=== PATIENT | male | born 1970 | race African-American/Black ===

== ENCOUNTER 2019-05-20 11:37 | Outpatient (CLI) | payer MEDICAID, SELFPAY ==
--- NOTE | 2019-05-20 11:47 | XR_ITS ---
WS: [id number] LUMBAR SPINE TECHNIQUE: 5 views of the lumbar spine CLINICAL INFORMATION: BACK PAIN LUMBAR COMPARISON: None. FINDINGS: Five [id number] lumbar vertebral bodies. Disc space heights are well preserved. No compression f ractures. No visualized pars defects. No spondylolisthesis. Visualized sacroiliac joints are normal. Normal visualized soft tissues. Partially visualized bowel gas pattern is normal. XR/XR lumbar spine min 4V [id number] IMPRESSION: Normal lumbar spine.
--- NOTE | 2019-05-20 11:47 | XR_ITS ---
WS: [id number] PROCEDURE: XR chest 2V* [id number] CLINICAL INFORMATION: COUGH, ASTHMA COMPARISON: 019 FINDINGS: Heart: Normal cardiac silhouette. Lungs: Lungs are clear. No consolidation or pleural fluid. Bones: Normal visualized bony structures. XR/XR chest 2V* [id number] IMPRESSION: Normal chest
== END 2019-05-20 11:38 | disposition home or self-care (01) ==
PROVIDERS: Family Provider Nurse Practitioner Family; PCP Nurse Practitioner Family; Visit Provider Nurse Practitioner Family
DX: J45.909 Unspecified asthma, uncomplicated (principal); R05 Cough; M54.5 Low back pain
CPT/HCPCS: 71046; 72114

== ENCOUNTER 2019-05-26 00:37 | Emergency (ER) | payer MEDICAID, SELFPAY ==
--- NOTE | 2019-05-26 00:42 | XRR_ITS ---
PROCEDURE INFORMATION: Exam: XR Chest, 1 View Exam date and time: 05/26/2019 1:32 AM Age: 49 years old Clinical indication: Shortness of breath; Additional info: SOB, asthma TECHNIQUE: Imaging protocol: XR of the chest Views: Frontal portable upright view of the chest. COMPARISON: CR XR chest 2V* 03000 05/20/2019 12:00 PM FINDINGS: Lungs: The lungs are clear bilaterally. The pulmonary vasculature is normal. Pleural space: No pleural effusion. No pneumothorax. Heart/Mediastinum: The heart is normal in size and contour. Mediastinum: Stable. Bones/joints: Stable. XR/XR chest 1V portable [id number] IMPRESSION: No acute cardiopulmonary abnormality identified.
--- NOTE | 2019-05-26 00:42 | ECG_ITS ---
Measurements Intervals [place] Rate: 91 P: 85 AR: 143 QRS: 89 QRSD: 76 T: 60 QT: 322 QTc: 398 SINUS RHYTHM POSSIBLE LEFT ATRIAL ENLARGEMENT [-0.1mV P WAVE IN V1/V2] No previous ECG available for comparison Electronically Signed On 05-26-2019 9:04:53 CDT by Frandy Smith M.D. [email or web address]
--- NOTE | 2019-05-26 00:48 | ED_ITS ---
Entered by Rebekah Man, acting as scribe for HPI - Asthma General: Chief Complaint: Shortness of Breath/Dyspnea Stated Complaint: SOB Time Seen by Provider: 05/26/19 00:38 Source: patient Mode of arrival: wheelchair Limitations: no limitations History of Present Illness: HPI Narrative: 49 yo m came to the er pov with family for shortness of breath. 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 He states he has had a slight cough along with difficulty breathing. He has been using his inhaler at home with minimal relief. He denies any fevers. He denies any chest pain. 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) Severity: mild Context: none known Associated symptoms: Reports no associated symptoms; Deny chest pain or fever(s) Treatments Prior to Arrival: inhaled steroid Review of Systems General: Reports: other (negative unless marked) Const: Denies: fever, chills, body aches or change in appetite Eyes: Denies: blurry vision or eye discomfort ENMT: Denies: throat pain or dental pain Card: Denies: chest pain Resp: Reports: shortness of breath GI: Denies: abdominal pain, nausea, vomiting or diarrhea : Denies: painful urination Musc: Denies: neck pain or back pain Skin/Breast: Denies: rash Neuro: Denies: headache Psych: Denies: depression Rojas/Lymph: Denies: easy bruising All/Imm: Denies: hives Physical Exam Const: COMMON NORMALS: oriented x3 and healthy appearing GENERAL APPEARANCE: in distress (mild resp distress) HENMT: COMMON NORMALS: normocephalic and head/scalp atraumatic HEAD & SCALP: normocephalic and atraumatic Eye: COMMON NORMALS: PERRL and EOMs intact bilaterally PUPIL: Yes PERRL Neck/C-Spine: COMMON NORMALS: full ROM and supple Chest: COMMONS NORMALS: inspection of chest normal and palpation of chest normal Resp: EFFORT & INSPECTION: Yes tachypneic and Yes respiratory distress AUSCULTATION: wheezes Cardio: COMMON NORMALS: regular rate, regular rhythm and no murmurs RATE: regular rate RHYTHM: regular rhythm GI: COMMON NORMALS: normal to inspection, nondistended, normoactive bowel sounds, soft to palpation, non-tender and no masses PALPATION: Yes soft Extremity: COMMON NORMALS: normal to inspection and full ROM Neuro: COMMON NORMALS: oriented x3, moves all extremities and no focal motor deficits Psych: COMMON NORMALS: mental status grossly normal, thought process normal and cooperative THOUGHT PROCESS: normal thought process Skin: COMMON NORMALS: no rashes or lesions noted and no wounds GENERAL SKIN EXAM: no rashes or lesions noted Course Vital Signs: Vital signs: Vital Signs Pulse Rate 106 H 05/26/19 03:16 Respiratory Rate 18 05/26/19 03:16 Blood Pressure 119/66 05/26/19 03:16 Pulse Oximetry 95 05/26/19 03:16 MDM - Asthma MDM Narrative: Medical decision making narrative: Patient presents here with shortness of breath is likely an asthma exacerbation. He feels much improved here after breathing treatments and is in no distress here. Patient's x-ray shows no pneumonia. He has no signs of pulmonary embolism or cardiac cause. Will start patient on steroids along with antibiotics. Patient is to follow-up with primary care doctor in 3 to 5 days and return to the ER if worsening. Lab Data: Labs: Lab Results 05/26/19 05/26/19 05/26/19 Range/Units 01:11 01:11 01:15 WBC 13.7 H (4.0-10.0) 10^3/ uL RBC 5.15 (4.1-5.3) 10^6/u L Hgb 14.4 (11.7-16.6) g/dL Hct 45.9 (42.0-52.0) % MCV 89.1 (80-94) fL MCH 28.0 (28.0-34.0) pg MCHC 31.4 (30.0-36.0) g/dL RDW 14.1 (12.1-15.1) % Plt Count 286 (130-400) 10^3/c mm MPV 11.4 H (7.4-10.4) fL Neut % (Auto) 82.3 % Lymph % (Auto) 8.4 % [place] % (Auto) 5.8 % Eos % (Auto) 2.6 % Baso % (Auto) 0.5 % Neut # (Auto) 11.3 H (1.8-7.7) 10^3/u L Lymph # (Auto) 1.1 (0.8-4.8) 10^3/u L [place] # (Auto) 0.8 (0.2-0.9) 10^3/u L Eos # (Auto) 0.4 (0.0-0.8) 10^3/u L Baso # (Auto) 0.1 (0.0-0.1) 10^3/u L Nucleated RBC % (a uto) 0 % Nucleated RBCs # 0.0 /100WBC Specimen Type Arterial Sample Site Radial, left ABG pH 7.36 (7.35-7.45) ABG pCO2 46.4 H (35-45) mmHg ABG pO2 41.0 L (80.0-100.0) mmH g ABG HCO3 26.0 (22-26) mmol/L ABG Base Excess -0.1 (-2.0-2.0) mmol/ L Marcelo Test Pos Hematocrit 43.9 (42-52) % Hgb O2 Saturation 81.3 L (95-100) % Carboxyhemoglobin 0.9 (0.4-20.1) %THgb Methemoglobin 0.4 (0.4-1.5) % Total Hemoglobin 14.3 (14-18) g/dL O2 Delivery Device None FiO2 21.0 % Wood Milling Machine Hand ID [id number] Sodium 136 (136-145) mmol/L Potassium 5.1 (3.5-5.1) mmol/L Chloride 99 (98-107) mmol/L Carbon Dioxide 26 (22-29) mmol/L Anion Gap 16.1 (5-19) BUN 9 (6-20) mg/dL Creatinine 0.9 (0.7-1.2) mg/dL GFR Calculation 109.0 (90-130) mL/min Glucose 113 (65-115) mg/dL Calculated Osmolal ity 279 L (285-295) mOsm/k g Calcium 9.2 (8.5-10.5) mg/dL Influenza Type A A g (Negative) POC Influenza B Ag (Negative) 05/26/19 Range/Units 02:15 WBC (4.0-10.0) 10^3/ uL RBC (4.1-5.3) 10^6/u L Hgb (11.7-16.6) g/dL Hct (42.0-52.0) % MCV (80-94) fL MCH (28.0-34.0) pg MCHC (30.0-36.0) g/dL RDW (12.1-15.1) % Plt Count (130-400) 10^3/c mm MPV (7.4-10.4) fL Neut % (Auto) % Lymph % (Auto) % [place] % (Auto) % Eos % (Auto) % Baso % (Auto) % Neut # (Auto) (1.8-7.7) 10^3/u L Lymph # (Auto) (0.8-4.8) 10^3/u L [place] # (Auto) (0.2-0.9) 10^3/u L Eos # (Auto) (0.0-0.8) 10^3/u L Baso # (Auto) (0.0-0.1) 10^3/u L Nucleated RBC % (a uto) % Nucleated RBCs # /100WBC Specimen Type Sample Site ABG pH (7.35-7.45) ABG pCO2 (35-45) mmHg ABG pO2 (80.0-100.0) mmH g ABG HCO3 (22-26) mmol/L ABG Base Excess (-2.0-2.0) mmol/ L Marcelo Test Hematocrit (42-52) % Hgb O2 Saturation (95-100) % Carboxyhemoglobin (0.4-20.1) %THgb Methemoglobin (0.4-1.5) % Total Hemoglobin (14-18) g/dL O2 Delivery Device FiO2 % Wood Milling Machine Hand ID Sodium (136-145) mmol/L Potassium (3.5-5.1) mmol/L Chloride (98-107) mmol/L Carbon Dioxide (22-29) mmol/L Anion Gap (5-19) BUN (6-20) mg/dL Creatinine (0.7-1.2) mg/dL GFR Calculation (90-130) mL/min Glucose (65-115) mg/dL Calculated Osmolal ity (285-295) mOsm/k g Calcium (8.5-10.5) mg/dL Influenza Type A A g Negative (Negative) POC Influenza B Ag Negative (Negative) EKG Data^: EKG 1: Attestation: I personally reviewed and interpreted this EKG as follows: EKG interpretation date: 05/26/19 EKG interpretation time: 01:05 Interpretation: nsr hr [address] or t wave abnormalities qrs 76 qtc 371 Discharge Plan Discharge Patient Disposition: Home, Self-Care Clinical Impression: Bronchitis Condition: Stable Prescriptions: New albuterol sulfate 90 mcg/actuation HFA aerosol inhaler 2 inh INHALATION Q6H PRN (Reason: shortness of breath or wheezing) Qty: 8 RF: 0 Keflex 500 mg capsule 500 mg PO Q6H 7 Days Qty: 28 RF: 0 prednisone 50 mg tablet 50 mg PO DAILY Qty: 5 RF: 0 Discharge Orders: Discharge Order (Routine); Ordered 05/26/19 Ordered By: Brenda Carrasco Referrals: Miguelangel Mckeon NP [Primary Care Provider] - Bentley,LILO Lynn [Family Provider] - Discharge Diet: Advance as tolerated Discharge Activity: Resume usual activity Patient Instructions: Acute Bronchitis (ED) Discharge Date/Time: 05/26/19 03:19 Coding Level of Care Code ED Dye Expert for Chg Fwd Exam Comprehensive The documentation recorded by the Donovan bedolla Stephanie Lyn, accurately reflects the service I personally performed and the decisions made by Danilo domínguez Korby, MD
[2019-05-26 01:00] VITALS: PULSE 82; RESP 24; O2SAT 95
[2019-05-26] MEDS: ipratropium-albuterol 3 mL Neb INHALATION (01:00)
[2019-05-26 01:07] VITALS: PULSE 75; RESP 22; O2SAT 95
[2019-05-26] MEDS: LORazepam 2 mg/mL INJ 1 mL 1 MG IVP (01:21)
[2019-05-26 01:24] LABS: ABG PCO2 46.4 mmHg (35-45); ABG PH Result 7.36 (7.35-7.45); Arterial Blood Gas Hematocrit 43.9 % (42-52); Base Excess ABG -0.1 mmol/L (-2.0-2.0); Blood Gas Allen Test Pos; Blood Gas Sample Site Radial, left; Blood Gas Sample Type Arterial; Carboxyhemoglobin 0.9 %THgb (0.4-20.1); HGB O2 Sat 81.3 % (95-100); Methemoglobin 0.4 % (0.4-1.5); Total Hemoglobin 14.3 g/dL (14-18)
[2019-05-26 01:31] LABS: Basophils # 0.1 10^3/uL (0.0-0.1); Basophils % 0.5 %; Eosinophils # 0.4 10^3/uL (0.0-0.8); Eosinophils % 2.6 %; Hematocrit 45.9 % (42.0-52.0); Hemoglobin 14.4 g/dL (11.7-16.6); Lymphocytes # 1.1 10^3/uL (0.8-4.8); Lymphocytes % 8.4 %; Mean Corpuscular HGB Conc 31.4 g/dL (30.0-36.0); Mean Corpuscular Volume 89.1 fL (80-94); Mean Platelet Volume 11.4 fL (7.4-10.4); Monocytes # 0.8 10^3/uL (0.2-0.9); Monocytes % 5.8 %; Neutrophils # 11.3 10^3/uL (1.8-7.7); Neutrophils % 82.3 %; Nucleated Red Blood Cells % 0 %; Platelet Count 286 10^3/cmm (130-400); Red Blood Count 5.15 10^6/uL (4.1-5.3); Red Cell Distribution Width 14.1 % (12.1-15.1); White Blood Count 13.7 10^3/uL (4.0-10.0)
[2019-05-26 01:38] LABS: Anion Gap 16.1 (5-19); Blood Urea Nitrogen 9 mg/dL (6-20); Calcium 9.2 mg/dL (8.5-10.5); Carbon Dioxide 26 mmol/L (22-29); Chloride 99 mmol/L (98-107); Glucose 113 mg/dL (65-115); Osmolality Calculated 279 mOsm/kg (285-295); Potassium 5.1 mmol/L (3.5-5.1); Sodium 136 mmol/L (136-145)
[2019-05-26 02:47] VITALS: PULSE 78; RESP 20; O2SAT 95
[2019-05-26 02:50] LABS: Influenza A by IFA Negative (Negative); Influenza B by IFA Negative (Negative)
[2019-05-26 02:52] VITALS: PULSE 94; RESP 20
[2019-05-26 03:16] VITALS: BP 119/66; PULSE 106; RESP 18; O2SAT 95
== END 2019-05-26 03:19 | disposition home or self-care (01) ==
PROVIDERS: Emergency Provider Emergency Medicine; Family Provider Nurse Practitioner Family; PCP Nurse Practitioner Family
DX: J45.909 Unspecified asthma, uncomplicated (principal)
CPT/HCPCS: 12345; 36415; 36600; 71045; 80048; 82805; 85025; 87804; 93005; 94640; 96374; 96375; 99283; 99284; J2060; J2930; J7611

== ENCOUNTER → 2019-08-10 08:45 | Outpatient (BNVA) | payer MEDICAID, SELFPAY | PROVIDERS: Family Provider Nurse Practitioner Family; PCP Nurse Practitioner Family; Referring Provider Nurse Practitioner Family; Visit Provider Anesthesiology Pain Medicine | DX: M54.41 Lumbago with sciatica, right side (principal); M54.42 Lumbago with sciatica, left side; M54.16 Radiculopathy, lumbar region; R45.851 Suicidal ideations | CPT/HCPCS: 99204 ==

== ENCOUNTER 2019-08-30 10:56 | Outpatient (CLI) | payer MEDICAID, SELFPAY ==
--- NOTE | 2019-08-30 11:13 | MR_ITS ---
WS: [id number] MRI LUMBAR SPINE NONCONTRAST TECHNIQUE: Sagittal T1, T2 and STIR imaging. Axial T1 and T2 imaging. CLINICAL INFORMATION: M54.16 Radiculopathy, lumbar region COMPARISON: None. FINDINGS: Mild lumbar curve. No acute compression. Mild annular bulging L4-L5 and L5-S1. No significant central canal stenosis. L1-L2: Normal. L2-L3: Normal. L3-L4: No significant disc bulging. Spinal canal and foramen are patent. L4-L5: Shallow central disc protrusion with slight effacement of ventral thecal sac. Slight contact o f the traversing L5 nerve roots. Mild facet arthropathy. Mild right and no significant left foraminal narrowing. Mild facet arthropathy. L5-S1: Mild annular bulging with a tiny shallow central protrusion. Tiny annular fissure. Spinal jazlyn l and foramen are patent. Mild facet arthropathy. Mild disc bulging C5-C6 and C6-C7. Cervical spinal canal is patent.Signal abnormality with flattening and deformity of the thoracic cord at T5-6. Recommend further evaluation with thoracic spine MRI wit hout and with gadolinium enhancement MR/MR lumbar spine wo con* [id number] IMPRESSION: 1. 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 Recommend further evaluation with MRI thoracic spine without and with gadolin ium enhancement for better anatomic detail. 2. Small shallow central disc protrusion L4-5 with slight effacement of ventra l thecal sac and narrowing of the right greater than left subarticular recess. Mild right foraminal narrowing at this level. 3. Tiny shallow central protrusion L5-S1 without significant spinal canal or f oraminal narrowing. Tiny annular fissure. 4. Mild facet arthropathy L4-L5 and L5-S1.
--- NOTE | 2019-08-30 11:29 | XR_ITS ---
WS: [id number] SKULL TECHNIQUE: 4 views of the skull CLINICAL INFORMATION: FOREIGN BODY FOR MRI COMPARISON: None. FINDINGS: Screening for MRI. Normal calvarium. No radiopaque foreign bodies. Normal sella. Visualized paranasal sinuses and mastoid air cells appear well aerated. XR/XR skull <4V [id number] IMPRESSION: No radiopaque foreign bodies.
== END 2019-08-30 10:57 | disposition home or self-care (01) ==
LOC: RADWPI 10:59
PROVIDERS: Family Provider Nurse Practitioner Family; PCP Nurse Practitioner Family; Visit Provider Anesthesiology Pain Medicine
DX: Z03.89 Encounter for observation for other suspected diseases and conditions ruled out (principal); M54.16 Radiculopathy, lumbar region; M47.817 Spondylosis without myelopathy or radiculopathy, lumbosacral region; M51.27 Other intervertebral disc displacement, lumbosacral region; M51.26 Other intervertebral disc displacement, lumbar region; M47.816 Spondylosis without myelopathy or radiculopathy, lumbar region
CPT/HCPCS: 70250; 72148

== ENCOUNTER → 2019-08-31 09:55 | Outpatient (BNVA) | payer MEDICAID, SELFPAY | PROVIDERS: Family Provider Nurse Practitioner Family; PCP Nurse Practitioner Family; Visit Provider Anesthesiology Pain Medicine | DX: M54.16 Radiculopathy, lumbar region (principal); G95.20 Unspecified cord compression; M54.9 Dorsalgia, unspecified | CPT/HCPCS: 99213; 99214 ==

== ENCOUNTER → 2019-09-23 14:48 | Outpatient (BNVA) | payer MEDICAID, SELFPAY | PROVIDERS: Family Provider Nurse Practitioner Family; PCP Nurse Practitioner Family; Visit Provider Anesthesiology Pain Medicine | DX: M54.41 Lumbago with sciatica, right side (principal); M54.42 Lumbago with sciatica, left side; M54.16 Radiculopathy, lumbar region; M54.9 Dorsalgia, unspecified; G95.20 Unspecified cord compression | CPT/HCPCS: 99213 ==

== ENCOUNTER → 2020-08-04 15:37 | Outpatient (BNVA) | payer MEDICAID, SELFPAY | PROVIDERS: Family Provider Nurse Practitioner Family; PCP Nurse Practitioner Family; Visit Provider Surgery | DX: Z01.812 Encounter for preprocedural laboratory examination (principal); Z20.822 Contact with and (suspected) exposure to COVID-19 | CPT/HCPCS: 87635 ==

== ENCOUNTER 2020-08-10 13:01 | Inpatient (IN) | payer MEDICAID, SELFPAY ==
[2020-08-09 10:39] VITALS: BMI 34.7
[2020-08-10] VITALS (27 sets, daily range): BP systolic 112–183; BP diastolic 69–124; PULSE 72–108; RESP 16–24; TEMP 36.4–37.8; O2SAT 90–100
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
[2020-08-10] MEDS: sodium chloride 0.9% 1,000 ML 30 ML IV (09:57)
--- NOTE | 2020-08-10 10:07 | W.PM.OPSUD ---
Surgery/Procedure H&P Update DATE OF PROCEDURE: August 10, 2020 DATE H&P PERFORMED: 07/17/20 H&P UPDATE INFORMATION: I have reviewed H&P completed within last 30 days, I have examined patient prior to procedure and No changes to prior documentation PREOP DIAGNOSIS: panendoscopy PLANNED PROCEDURE: Operation Date: 08/10/20 10:30 Proposed Procedures p EGD/colon 13381 63569 K92.1 R10.9(Not Applicable) - Paras Boswell MD s Colonoscopy(Not Applicable) - Paras Boswell MD
[2020-08-10] MEDS: ciprofloxacin 400 MG/200 ML PREMIX 200 MG IV ×2 (11:05→23:23)
[2020-08-10] MEDS: metroNIDAZOLE IV 500 MG/100 ML PREMIX 100 MG IV ×2 (11:15→19:26)
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
--- NOTE | 2020-08-10 13:35 | P.PN_ITS ---
Subjective Subjective: Interval history: Patient had undergone colonoscopy for hematochezia and had a sigmoid perforation Vitals/I&O/Wt Last Vital Signs Temp 98.4 F 08/10/20 13:15 Pulse 89 08/10/20 13:15 Resp 20 H 08/10/20 13:15 BP 183/103 08/10/20 13:15 Pulse Ox 100 08/10/20 13:15 08/09/20 08/10/20 08/10/20 22:59 06:59 14:59 Intake Total 300 / 300 Output Total 225 / 225 Balance 75 / 75 Weight last 48 hrs Weight 235 lb Physical Exam Narrative: EXAM NARRATIVE: Abdomen: Soft, distended A&P Assessment and plan (1) Perforation of colon as colonoscopy complication: 50-year-old male status post iatrogenic colon perforation. Plan for diagnostic laparoscopy, possible laparotomy under general anesthesia. Verbal consent obtained from patient's as patient was sedated Status: Acute Attestations Medical Necessity Statement*: Status post colon Perforation requiring emergent surgery Coding Level of Care Code Acute General Ophthalmologist for May Chen Diagnoses Perforation of colon as colonoscopy complication K63.1; K91.71
[2020-08-10] MEDS: meperidine 50 mg/mL INJ 12.5 MG IVP (13:40)
--- NOTE | 2020-08-10 14:09 | ANE.PACU2 ---
Inpatient post-anesthesia follow up: Airway intact: Yes Vital signs: Temperature 97.8 F Pulse Rate 82 Respiratory Rate 18 Blood Pressure 136/91 Pulse Oximetry 94 Oxygen Delivery Me thod Room Air Oxygen Flow Rate 8 Fraction of Inspir ed Oxygen Hydration adequate: Yes Nausea and vomiting: No Pain level: 3 Mental status: Baseline
--- NOTE | 2020-08-10 15:12 | SUR.PHASEI ---
1406 PT S/O NOTIFIED IN WR X 3 TIMES PT IS STABLE AND CALM , NOW VISITED FACE TO FACE WITH S/O PT TO GO TO 273 , WE AR WAITING TO GIVE REPORT PT IS SLEEPING AND IS CALM VSS WILL KEEP HER UPDATED 1434 PT TO FLOOR PER CART S/O IN ROOM, PT AWAKE ALERT TALKATIVE,WITH S/O AND STAFF, PT MOVED TO BED WITH SLIDEBOARD, PT ASSISTED AND MOVES ALL EXT TO COMMAND STRONGLY. ABD SOFT LARGE WITH 3 SITES WITH DERMABOND AND 1 SITES WITH DRAIN COMPRESSED AND EMPTIED ON FLOOR OF 60ML. REED TO DD YELLOW URINE, STATLOCK TO RT THIGH,
[2020-08-10] MEDS: oxyCODONE-APAP 5-325 mg Tablet 1 TAB PO (16:46)
[2020-08-10] MEDS: tizanidine 4 mg Tablet PO (16:47)
[2020-08-10] MEDS: sennosides-docusate Tablet 1 TAB PO (16:47)
[2020-08-10] MEDS: D5-NS 0.45% + KCL 20 mEq 20 MEQ/1,000 ML BAG 100 MEQ IV (16:48)
--- NOTE | 2020-08-10 16:54 | PM.PN ---
Subjective Subjective: Interval history: Patient complaining of abdominal pain, denies any nausea or vomiting Vitals/I&O/Wt Last Vital Signs Temp 98.0 F 08/10/20 16:00 Pulse 81 08/10/20 16:00 Resp 17 08/10/20 16:46 BP 138/87 08/10/20 16:00 Pulse Ox 92 08/10/20 16:00 08/10/20 08/10/20 08/10/20 06:59 14:59 22:59 Intake Total 300 / 483.5 183.5 / 483.5 Output Total 225 / 225 Balance 75 / 258.5 183.5 / 258.5 Weight last 48 hrs Weight 235 lb Physical Exam Narrative: EXAM NARRATIVE: Plan: Soft, tender, nondistended, MORRIS drain output is serosanguineous Urinary Catheter Management^: Gatica Latex: Cath Placed During This Visit: yes Urinary Catheter Date of Insertion: 08/10/20 Urinary Catheter Time of Insertion: 11:14 A&P Assessment and plan (1) H/O laparoscopy: Status post laparoscopic repair of colon perforation, currently hemodynamically stable Afebrile MORRIS drain output is serosanguineous Clear liquid diet Vitals every 4 hours Monitor urine output closely Status: Acute Attestations Medical Necessity Statement*: Status post colon perforation requiring continued inpatient stay Coding Level of Care Code Acute Parachute Manufacturing Supervisor for May Chen Diagnoses H/O laparoscopy Z98.890
[2020-08-10] MEDS: morphine 4 mg/mL SDV 1 mL 3 MG IVP ×2 (20:10→23:23)
[2020-08-10] MEDS: famotidine 20 mg/2 mL INJ IVP (20:10)
[2020-08-11] VITALS (16 sets, daily range): BP systolic 111–147; BP diastolic 74–90; PULSE 62–67; RESP 16–20; TEMP 36.8–37.1; O2SAT 17–96
[2020-08-11] MEDS: oxyCODONE-APAP 5-325 mg Tablet 1 TAB PO ×4 (02:26→23:22)
[2020-08-11] MEDS: metroNIDAZOLE IV 500 MG/100 ML PREMIX 100 MG IV ×3 (02:27→19:13)
[2020-08-11 02:39] LABS: Basophils % 0.2 %; Hematocrit 43.2 % (42.0-52.0); Hemoglobin 13.8 g/dL (11.7-16.6); Lymphocytes # 2.1 10^3/uL (0.8-4.8); Lymphocytes % 9.7 %; Mean Corpuscular HGB Conc 31.9 g/dL (30.0-36.0); Mean Corpuscular Hemoglobin 29.4 pg (28.0-34.0); Mean Corpuscular Volume 91.9 fL (80-94); Mean Platelet Volume 11.6 fL (7.4-10.4); Monocytes # 1.5 10^3/uL (0.2-0.9); Monocytes % 6.7 %; Neutrophils # 18.11 10^3/uL (1.8-7.7); Neutrophils % 82.9 %; Nucleated Red Blood Cells % 0 %; Platelet Count 283 10^3/cmm (130-400); Red Cell Distribution Width 13.1 % (12.1-15.1); White Blood Count 21.9 10^3/uL (4.0-10.0)
[2020-08-11 02:58] LABS: Anion Gap 14.2 (5-19); Blood Urea Nitrogen 13 mg/dL (6-20); Calcium 7.8 mg/dL (8.5-10.5); Carbon Dioxide 26 mmol/L (22-29); Chloride 97 mmol/L (98-107); Glomerular Filtration Rate 96.1 mL/min (90-130); Glucose 127 mg/dL (65-115); Osmolality Calculated 278 mOsm/kg (285-295); Potassium 4.2 mmol/L (3.5-5.1); Sodium 133 mmol/L (136-145)
[2020-08-11] MEDS: morphine 4 mg/mL SDV 1 mL 3 MG IVP ×3 (03:42→19:13)
[2020-08-11] MEDS: D5-NS 0.45% + KCL 20 mEq 20 MEQ/1,000 ML BAG 100 MEQ IV ×2 (05:46→15:54)
--- NOTE | 2020-08-11 07:59 | PM.PN ---
Subjective Subjective: Interval history: Patient had good urine output overnight, no flatus or BM, no nausea or vomiting. Pain controlled with morphine and Percocet Vitals/I&O/Wt Last Vital Signs Temp 98.3 F 08/11/20 03:25 Pulse 66 08/11/20 03:25 Resp 18 08/11/20 06:22 BP 111/74 08/11/20 03:25 Pulse Ox 94 08/11/20 03:25 08/10/20 08/11/20 08/11/20 22:59 06:59 14:59 Intake Total 523.5 / 3103.500 2280.000 / 3103.500 Output Total 415 / 2075 1435 / 2075 Balance 108.5 / 1028.500 845.000 / 1028.500 Weight last 48 hrs Weight 235 lb Physical Exam Narrative: EXAM NARRATIVE: Abdomen: Soft, tender, mildly distended, incision clean dry and intact, MORRIS drain output serosanguineous Gatica catheter: Clear urine Urinary Catheter Management^: Gatica Latex: Cath Placed During This Visit: yes Urinary Catheter Date of Insertion: 08/10/20 Urinary Catheter Time of Insertion: 11:14 Data : 08/11/20 02:18 08/11/20 02:18 A&P Assessment and plan (1) H/O laparoscopy: Status post Continue clear liquid diet Ambulate with physical therapy DC Gatica Daily labs Continue IV Cipro and Flagyl Lovenox for DVT prophylaxis Pepcid for GI prophylaxis Status: Acute Attestations Medical Necessity Statement*: Patient will need greater than 2 nights of inpatient stay to ensure resolution of ileus, leukocytosis and return of bowel function Coding Level of Care Code Acute Head Batcher for Chg Fwd Diagnoses H/O laparoscopy Z98.890
[2020-08-11] MEDS: enoxaparin 40 mg/0.4 mL Syringe SUBCUT (09:21)
[2020-08-11] MEDS: famotidine 20 mg/2 mL INJ IVP ×2 (09:22→20:24)
[2020-08-11] MEDS: montelukast sodium 10 mg Tablet PO (09:22)
[2020-08-11] MEDS: sennosides-docusate Tablet 1 TAB PO ×2 (09:22→18:12)
[2020-08-11] MEDS: chlorthalidone 25 mg Tablet PO (09:22)
[2020-08-11] MEDS: ciprofloxacin 400 MG/200 ML PREMIX 200 MG IV ×2 (10:19→23:22)
[2020-08-11] MEDS: ondansetron 2 mg/ML SDV 2 mL 4 MG IVP ×2 (11:08→16:25)
--- NOTE | 2020-08-11 13:11 | PC.CHAP ---
Pastoral Care Encounter/Spiritual Assessment Type of Contact [xx] Declined field cane scaler visit [] Patient/Family/Request visit [] Outpatient visit [] Follow-up visit [] Physician referral [] Code/Alert [] Routine visit [] Staff referral [] Actively dying [] Patient sleeping [] Family support [] [] Out of room [] Palliative care [] [] Receiving care in room [] Pre-surgical visit [] Trauma [] Long length of stay [] ICU visit [] Other: Relational/Emotional Strength [] Patient feels connected with others/family/visitors/staff [] Distress [] Loneliness/isolation [] Abandonment Spirituality of Patient [] Person of Miriam [] Attends Mandaeism of their Miriam [] Believes in Prayer [] Reads Bible or Faith materials [xx] There are Spiritual issues to be addressed Gyro Mechanic Interventions [] Prayer [xx] Active listening [] Non-anxious presence [] Spiritual/emotional support [] Crisis/trauma care [] Spiritual counseling [] Bereavement support [] Provided bereavement packet [] Provided Bible/devotional materials [] Provided toy/stuffed animal, coloring book to patient or family member [] Provided Communion [] Anointing/[place] [] Salvation [xx] Completed spiritual assessment [] Other: Impact on Illness or Injury [] Angry [] Fearful [] Anxious [] Often cries [] Exhaustion [] Unable to work [] Unable to attend mu-ism [] Unable to walk/stand [] Unable to read [] Unable to drive [] Unable to eat/drink [] Unable to sleep [] Unable to be with family [] Patient intubated [] Other: Summary Visitor present. Patient did not want field cane scaler visit as he is of a different miriam. Time spent with patient 2 minutes
--- NOTE | 2020-08-11 16:09 | PM.PN ---
Subjective Subjective: Interval history: Patient had nausea and one episode of emesis this morning, good urine output after Gatica catheter was removed. Complains of abdominal pain but he has not taken any pain medication since 9 AM this morning Vitals/I&O/Wt Last Vital Signs Temp 98.6 F 08/11/20 15:44 Pulse 62 08/11/20 15:44 Resp 18 08/11/20 15:44 BP 147/90 08/11/20 15:44 Pulse Ox 95 08/11/20 15:44 08/11/20 08/11/20 08/11/20 06:59 14:59 22:59 Intake Total 2280.000 / 3103.500 300 / 1300 1000 / 1300 Output Total 1435 / 2075 930 / 1730 800 / 1730 Balance 845.000 / 1028.500 -630 / -430 200 / -430 Physical Exam Narrative: EXAM NARRATIVE: Abdomen: Soft, tender, MORRIS drain output is serosanguineous Urinary Catheter Management^: Gatica Latex: Cath Placed During This Visit: yes, but has since been removed by the nurse Reason for Continuing Indwelling Catheter: Decision to DC Catheter Urinary Catheter Date of Insertion: 08/10/20 Urinary Catheter Time of Insertion: 11:14 Date Urinary Catheter Removed: 08/11/20 Time Urinary Catheter Discontinued: 10:37 Data : 08/11/20 02:18 08/11/20 02:18 A&P Assessment and plan (1) H/O laparoscopy: Patient is hemodynamically stable, no evidence of peritonitis, afebrile MORRIS drain output is serosanguineous Continue IV fluids Continue clear liquid diet Ambulate ad jade. Status: Acute Attestations Medical Necessity Statement*: Patient will need continued inpatient stay to ensure resolution of ileus Coding Level of Care Code Acute Fender Mechanic Apprentice for Michelleg Fwd Diagnoses H/O laparoscopy Z98.890
[2020-08-12] VITALS (16 sets, daily range): BP systolic 104–137; BP diastolic 72–95; PULSE 64–78; RESP 16–20; TEMP 36.2–37.7; O2SAT 91–97
[2020-08-12] MEDS: D5-NS 0.45% + KCL 20 mEq 20 MEQ/1,000 ML BAG 100 MEQ IV (03:18)
[2020-08-12] MEDS: metroNIDAZOLE IV 500 MG/100 ML PREMIX 100 MG IV ×3 (03:18→19:48)
[2020-08-12] MEDS: morphine 4 mg/mL SDV 1 mL 3 MG IVP ×3 (03:31→16:12)
--- NOTE | 2020-08-12 04:51 | PC.NURSE ---
Pt tolerating therapies tonight rather well with at bedside. Moderate pain at times, but is relieved with use of PO pain medication and occasional IVP meds. Pt bowel sounds hyperactive but yet still no passing of gas or BM. No nausea or vomitting. Abdomen round but not sensing distention. Tender around incisional areas but otherwise no redness or unusual swelling noted. Pt ambulated x2 this shift which caused increase in drainage from MORRIS and around incision for MORRIS. Dressing around MORRIS changed x1. Serosanguineous fluid from MORRIS in amount of 90mls at this time, no odor.
[2020-08-12] MEDS: oxyCODONE-APAP 5-325 mg Tablet 1 TAB PO ×3 (05:36→20:06)
[2020-08-12] MEDS: tizanidine 4 mg Tablet PO (05:36)
[2020-08-12 07:04] LABS: Basophils # 0.1 10^3/uL (0.0-0.1); Basophils % 0.5 %; Eosinophils # 0.1 10^3/uL (0.0-0.8); Eosinophils % 0.5 %; Hematocrit 48.5 % (42.0-52.0); Hemoglobin 15.4 g/dL (11.7-16.6); Lymphocytes # 2.2 10^3/uL (0.8-4.8); Lymphocytes % 14.4 %; Mean Corpuscular HGB Conc 31.8 g/dL (30.0-36.0); Mean Corpuscular Hemoglobin 28.9 pg (28.0-34.0); Mean Platelet Volume 11.8 fL (7.4-10.4); Monocytes # 1.3 10^3/uL (0.2-0.9); Monocytes % 8.5 %; Neutrophils # 11.31 10^3/uL (1.8-7.7); Neutrophils % 75.4 %; Nucleated Red Blood Cells % 0 %; Platelet Count 307 10^3/cmm (130-400); Red Blood Count 5.33 10^6/uL (4.1-5.3); Red Cell Distribution Width 13.2 % (12.1-15.1)
[2020-08-12 07:24] LABS: Anion Gap 14.5 (5-19); Blood Urea Nitrogen 9 mg/dL (6-20); Calcium 8.2 mg/dL (8.5-10.5); Carbon Dioxide 29 mmol/L (22-29); Chloride 91 mmol/L (98-107); Glomerular Filtration Rate 77.9 mL/min (90-130); Glucose 133 mg/dL (65-115); Osmolality Calculated 273 mOsm/kg (285-295); Potassium 3.5 mmol/L (3.5-5.1); Sodium 131 mmol/L (136-145)
[2020-08-12] MEDS: famotidine 20 mg/2 mL INJ IVP ×2 (09:05→21:08)
[2020-08-12] MEDS: chlorthalidone 25 mg Tablet PO (09:05)
[2020-08-12] MEDS: sennosides-docusate Tablet 1 TAB PO (09:05)
[2020-08-12] MEDS: montelukast sodium 10 mg Tablet PO (09:05)
[2020-08-12] MEDS: enoxaparin 40 mg/0.4 mL Syringe SUBCUT (09:06)
--- NOTE | 2020-08-12 10:20 | P.PN_ITS ---
Subjective Subjective: Interval history: Patient denies any nausea or vomiting, complains of abdominal pain, no BM or flatus Vitals/I&O/Wt Last Vital Signs Temp 99.8 F H 08/12/20 08:00 Pulse 74 08/12/20 08:00 Resp 20 H 08/12/20 09:11 BP 130/88 08/12/20 08:00 Pulse Ox 91 08/12/20 08:00 08/11/20 08/12/20 08/12/20 22:59 06:59 14:59 Intake Total 1340 / 2940 1300 / 2940 Output Total 830 / 3100 1340 / 3100 385 / 385 Balance 510 / -160 -40 / -160 -385 / -385 Physical Exam Narrative: EXAM NARRATIVE: Abdomen: Soft, distended, minimally tender, incision clean dry intact, MORRIS drain output is serosanguineous Urinary Catheter Management^: Gatica Latex: Cath Placed During This Visit: yes, but has since been removed by the nurse Reason for Continuing Indwelling Catheter: Decision to DC Catheter Urinary Catheter Date of Insertion: 08/10/20 Urinary Catheter Time of Insertion: 11:14 Date Urinary Catheter Removed: 08/11/20 Time Urinary Catheter Discontinued: 10:37 Data : 08/12/20 06:01 08/12/20 06:01 A&P Assessment and plan (1) H/O laparoscopy: 50-year-old male status post laparoscopic repair of colon perforation during colonoscopy patient is hemodynamically stable, no evidence of peritonitis, afebrile MORRIS drain output is serosanguineous Continue IV fluids Incentive spirometry Daily labs Lovenox for DVT prophylaxis Pepcid for GI prophylaxis Morphine and [place] for pain control Senna docusate for bowel regimen Continue clear liquid diet Ambulate ad jade. Status: Acute Attestations Medical Necessity Statement*: Postop ileus after laparoscopic repair of colon perforation requiring continued inpatient stay Coding Level of Care Code Acute Advertising Copywriter for May Fwkevin Diagnoses H/O laparoscopy Z98.890
[2020-08-12] MEDS: ciprofloxacin 400 MG/200 ML PREMIX 200 MG IV (10:27)
[2020-08-12] MEDS: dextrose 5%-ns + KCl 20 20 MEQ/1,000 ML BAG 100 MEQ IV (15:51)
[2020-08-12] MEDS: ketorolac 30 mg/mL INJ 15 MG IVP (23:14)
[2020-08-13] VITALS (7 sets, daily range): BP systolic 122–130; BP diastolic 76–86; PULSE 64–81; RESP 14–18; TEMP 36.7–37.3; O2SAT 94–96
[2020-08-13] MEDS: ciprofloxacin 400 MG/200 ML PREMIX 200 MG IV ×3 (00:55→22:03)
[2020-08-13] MEDS: dextrose 5%-ns + KCl 20 20 MEQ/1,000 ML BAG 100 MEQ IV (02:45)
[2020-08-13] MEDS: oxyCODONE-APAP 5-325 mg Tablet 1 TAB PO ×2 (04:08→18:06)
[2020-08-13] MEDS: metroNIDAZOLE IV 500 MG/100 ML PREMIX 100 MG IV ×3 (04:10→18:12)
[2020-08-13 07:17] LABS: Basophils # 0.1 10^3/uL (0.0-0.1); Basophils % 0.8 %; Eosinophils # 0.4 10^3/uL (0.0-0.8); Eosinophils % 2.7 %; Hematocrit 44.9 % (42.0-52.0); Hemoglobin 14.6 g/dL (11.7-16.6); Lymphocytes # 2.7 10^3/uL (0.8-4.8); Lymphocytes % 19.4 %; Mean Corpuscular HGB Conc 32.5 g/dL (30.0-36.0); Mean Corpuscular Hemoglobin 29.3 pg (28.0-34.0); Mean Corpuscular Volume 90.2 fL (80-94); Mean Platelet Volume 11.8 fL (7.4-10.4); Monocytes # 1.1 10^3/uL (0.2-0.9); Monocytes % 8.2 %; Neutrophils # 9.43 10^3/uL (1.8-7.7); Nucleated Red Blood Cells % 0 %; Platelet Count 310 10^3/cmm (130-400); Red Blood Count 4.98 10^6/uL (4.1-5.3); White Blood Count 13.9 10^3/uL (4.0-10.0)
[2020-08-13 07:43] LABS: Anion Gap 15.5 (5-19); Blood Urea Nitrogen 9 mg/dL (6-20); Calcium 7.2 mg/dL (8.5-10.5); Carbon Dioxide 27 mmol/L (22-29); Chloride 94 mmol/L (98-107); Glomerular Filtration Rate 86.1 mL/min (90-130); Glucose 114 mg/dL (65-115); Osmolality Calculated 276 mOsm/kg (285-295); Potassium 3.5 mmol/L (3.5-5.1); Sodium 133 mmol/L (136-145)
--- NOTE | 2020-08-13 07:45 | P.PN_ITS ---
Subjective Subjective: Interval history: Patient states that he is not passing flatus, no nausea or vomiting, tolerating full liquid diet, complains of abdominal pain that he has not taken much pain medications Vitals/I&O/Wt Last Vital Signs Temp 98.0 F 08/13/20 04:00 Pulse 65 08/13/20 04:00 Resp 14 08/13/20 04:08 BP 122/86 08/13/20 04:00 Pulse Ox 96 08/13/20 04:00 08/12/20 08/13/20 08/13/20 22:59 06:59 14:59 Intake Total 100 / 2550 1200 / 2550 Output Total 615 / 1870 575 / 1870 Balance -515 / 680 625 / 680 Physical Exam Narrative: EXAM NARRATIVE: Abdomen: Soft, incision clean dry and intact, MORRIS drain output is serosanguineous Urinary Catheter Management^: Gatica Latex: Cath Placed During This Visit: yes, but has since been removed by the nurse Reason for Continuing Indwelling Catheter: Decision to DC Catheter Urinary Catheter Date of Insertion: 08/10/20 Urinary Catheter Time of Insertion: 11:14 Date Urinary Catheter Removed: 08/11/20 Time Urinary Catheter Discontinued: 10:37 Data : 08/14/20 06:40 08/14/20 06:40 A&P Assessment and plan (1) H/O laparoscopy: 50-year-old male status post laparoscopic repair of colon perforation during colonoscopy patient is hemodynamically stable, no evidence of peritonitis, afebrile MORRIS drain output is serosanguineous Continue IV fluids Incentive spirometry Daily labs Lovenox for DVT prophylaxis Pepcid for GI prophylaxis Morphine and [place] for pain control Senna docusate for bowel regimen Continue full liquid diet Ambulate ad jade. Status: Acute Attestations Medical Necessity Statement*: continue iv abx, awaiting return of bowel function Coding Level of Care Code Acute Hospital Pharmacy Technician for Michelleg Fwd Diagnoses H/O laparoscopy Z98.890
[2020-08-13] MEDS: famotidine 20 mg/2 mL INJ IVP ×2 (09:18→21:45)
[2020-08-13] MEDS: chlorthalidone 25 mg Tablet PO (09:56)
[2020-08-13] MEDS: enoxaparin 40 mg/0.4 mL Syringe SUBCUT (09:56)
[2020-08-13] MEDS: montelukast sodium 10 mg Tablet PO (09:56)
[2020-08-13] MEDS: sennosides-docusate Tablet 1 TAB PO (09:56)
[2020-08-13] MEDS: ketorolac 30 mg/mL INJ 15 MG IVP ×2 (14:09→22:35)
[2020-08-14] VITALS: BP 135/89; PULSE 93; RESP 16; TEMP 36.9; O2SAT 93
[2020-08-14 04:00] VITALS: BP 122/83; PULSE 85; RESP 14; TEMP 36.3; O2SAT 94
[2020-08-14] MEDS: metroNIDAZOLE IV 500 MG/100 ML PREMIX 100 MG IV (04:22)
--- NOTE | 2020-08-14 07:08 | PC.NURSE ---
when i walked into pt room pt was complaining about bed being to high stated the lady that poked me left my bed up this high. i stated im sorry this happend. pt stated whatever . i told pt i would be back in,in a few minutes to take vitals pt stated no oh hell no i said ok and left the room.
[2020-08-14 07:19] LABS: Basophils # 0.1 10^3/uL (0.0-0.1); Basophils % 0.7 %; Eosinophils # 0.3 10^3/uL (0.0-0.8); Hematocrit 42.8 % (42.0-52.0); Hemoglobin 14.4 g/dL (11.7-16.6); Lymphocytes # 1.9 10^3/uL (0.8-4.8); Lymphocytes % 13.2 %; Mean Corpuscular HGB Conc 33.6 g/dL (30.0-36.0); Mean Corpuscular Hemoglobin 29.2 pg (28.0-34.0); Mean Corpuscular Volume 86.8 fL (80-94); Mean Platelet Volume 11.9 fL (7.4-10.4); Monocytes # 1.3 10^3/uL (0.2-0.9); Monocytes % 8.8 %; Neutrophils # 10.54 10^3/uL (1.8-7.7); Neutrophils % 74.5 %; Nucleated Red Blood Cells % 0 %; Platelet Count 319 10^3/cmm (130-400); Red Blood Count 4.93 10^6/uL (4.1-5.3); Red Cell Distribution Width 12.6 % (12.1-15.1); White Blood Count 14.1 10^3/uL (4.0-10.0)
[2020-08-14 07:42] LABS: Blood Urea Nitrogen 10 mg/dL (6-20); Calcium 7.9 mg/dL (8.5-10.5); Carbon Dioxide 26 mmol/L (22-29); Chloride 91 mmol/L (98-107); Glomerular Filtration Rate 96.1 mL/min (90-130); Glucose 90 mg/dL (65-115); Osmolality Calculated 267 mOsm/kg (285-295); Sodium 129 mmol/L (136-145)
[2020-08-14 07:43] LABS: Anion Gap 15.3 (5-19); Potassium 3.3 mmol/L (3.5-5.1)
[2020-08-14] MEDS: montelukast sodium 10 mg Tablet PO (08:22)
[2020-08-14] MEDS: enoxaparin 40 mg/0.4 mL Syringe SUBCUT (08:41)
[2020-08-14 08:42] VITALS: PULSE 85; RESP 16; O2SAT 94
[2020-08-14] MEDS: famotidine 20 mg/2 mL INJ IVP (08:43)
[2020-08-14] MEDS: chlorthalidone 25 mg Tablet PO (08:47)
[2020-08-14] MEDS: ketorolac 30 mg/mL INJ 15 MG IVP (10:41)
[2020-08-14] MEDS: potassium chloride oral liq 20 mEq/15 mL UDC 80 MEQ PO (10:59)
--- NOTE | 2020-08-14 11:01 | P.PN_ITS ---
Subjective Subjective: Interval history: Patient has been doing well morning, no nausea vomiting, tolerating GI soft diet Vitals/I&O/Wt Last Vital Signs Temp 97.3 F L 08/14/20 04:00 Pulse 85 08/14/20 08:42 Resp 16 08/14/20 08:42 BP 122/83 08/14/20 04:00 Pulse Ox 94 08/14/20 08:42 08/13/20 08/14/20 08/14/20 22:59 06:59 14:59 Intake Total 1580 / 2400 300 / 2400 240 / 240 Output Total 370 / 1845 420 / 1845 260 / 260 Balance 1210 / 555 -120 / 555 -20 / -20 Physical Exam Narrative: EXAM NARRATIVE: Abdomen: Soft, mildly distended, nontender, incision clean dry and intact, MORRIS drain output serosanguineous Urinary Catheter Management^: Gatica Latex: Cath Placed During This Visit: yes, but has since been removed by the nurse Reason for Continuing Indwelling Catheter: Decision to DC Catheter Urinary Catheter Date of Insertion: 08/10/20 Urinary Catheter Time of Insertion: 11:14 Date Urinary Catheter Removed: 08/11/20 Time Urinary Catheter Discontinued: 10:37 Data : 08/14/20 06:40 08/14/20 06:40 A&P Assessment and plan (1) H/O laparoscopy: 50-year-old male status post laparoscopic repair of colon perforation during colonoscopy patient is hemodynamically stable, no evidence of peritonitis, afebrile MORRIS drain output is serosanguineous DC MORRIS drain today, DC home today Hypokalemia: 80 mEq of KCl given Status: Acute Attestations Medical Necessity Statement*: Status post laparoscopic repair of colon perfo ration, DC home today Coding Level of Care Code Acute Electrical Maintenance Engineer for Chg Fwd Diagnoses H/O laparoscopy Z98.890
[2020-08-14 11:03] VITALS: BP 139/88; PULSE 80; RESP 18; TEMP 36.7; O2SAT 97
[2020-08-14] MEDS: ciprofloxacin 400 MG/200 ML PREMIX 200 MG IV (11:10)
--- NOTE | 2020-08-14 11:12 | PM.DCS ---
Discharge Providers Date of Admission: 08/10/20 14:56 Date of Discharge: August 14, 2020 Attending Provider at Admission: Paras Boswell MD Attending Provider at Discharge: Paras Boswell MD Primary Care Provider: Miguelangel Mckeon NP Diagnoses at Discharge Discharge Diagnosis (1) H/O laparoscopy: Status: Acute Permanent problem details: Primary repair of colon perforation Reason for Visit Reason for Visit: egd/colon Hospital Course Hospital Course This is a 50-year-old male who underwent colonoscopy on 08/10/2020 for hematochezia. During colonoscopy patient developed pneumoperitoneum and was noted to have a tear in the sigmoid colon. He was emergently taken to the operating room where he underwent laparoscopic repair of colon perforation. He was admitted to the hospital for IV antibiotics and observation. By postop day 3 he had return of bowel function. At time of discharge he was tolerating GI soft diet, had bowel movements. His MORRIS drain is discontinued since the output is serosanguineous. His incisions are clean dry and intact and he was afebrile and hemodynamically stable. Physical Exam Urinary Catheter Management^: Gatica Latex: Cath Placed During This Visit: yes, but has since been removed by the nurse Reason for Continuing Indwelling Catheter: Decision to DC Catheter Urinary Catheter Date of Insertion: 08/10/20 Urinary Catheter Time of Insertion: 11:14 Date Urinary Catheter Removed: 08/11/20 Time Urinary Catheter Discontinued: 10:37 Discharge Data Data Completed and Pending: Pending at discharge Category Date Time Status Basic Metabolic P pawel AM LABS Lab 08/15/20 04:00 Ordered Basic Metabolic P pawel AM LABS Lab 08/16/20 04:00 Ordered Complete Blood Co unt w/Auto AM LABS Lab 08/15/20 04:00 Ordered Complete Blood Co unt w/Auto AM LABS Lab 08/16/20 04:00 Ordered Labs from last 24 hours 08/14/20 08/14/20 06:40 06:40 WBC 14.1 H RBC 4.93 Hgb 14.4 Hct 42.8 MCV 86.8 MCH 29.2 MCHC 33.6 RDW 12.6 Plt Count 319 MPV 11.9 H Neut % (Auto) 74.5 Lymph % (Auto) 13.2 Power % (Auto) 8.8 Eos % (Auto) 2.0 Baso % (Auto) 0.7 Neut # (Auto) 10.54 H Lymph # (Auto) 1.9 Power # (Auto) 1.3 H Eos # (Auto) 0.3 Baso # (Auto) 0.1 Nucleated RBC % (a uto) 0 Nucleated RBCs # 0.0 Sodium 129 L Potassium 3.3 L Chloride 91 L Carbon Dioxide 26 Anion Gap 15.3 BUN 10 Creatinine 1.0 GFR Calculation 96.1 Glucose 90 Calculated Osmolal ity 267 L Calcium 7.9 L Vitals: Last Vital Signs Temp 98.0 F 08/14/20 11:03 Pulse 80 08/14/20 11:03 Resp 18 08/14/20 11:03 BP 139/88 08/14/20 11:03 Pulse Ox 97 08/14/20 11:03 Discharge Plan Discharge Patient Disposition: Home Condition: Stable Prescriptions: New Zofran 4 mg tablet 4 mg PO Q6H PRN (Reason: nausea and vomiting) Qty: 20 RF: 0 Senna with Docusate Sodium 8.6-50 mg tablet 1 tab-cap PO BID Qty: 30 RF: 0 Flagyl 500 mg tablet 500 mg PO Q8H 7 Days Qty: 21 RF: 0 Percocet 5-325 mg tablet 1 tab PO Q6H PRN (Reason: pain) Qty: 20 RF: 0 levofloxacin 750 mg tablet 750 mg PO DAILY 7 Days RF: 0 Continued diclofenac sodium 50 mg tablet,delayed release (DR/EC) 50 mg PO TID PRN (Reason: Pain) RF: 0 ibuprofen 200 mg capsule 200 mg PO Q6H PRN (Reason: Pain) RF: 0 tizanidine 4 mg tablet 4 mg PO BID PRN (Reason: muscle spasticity) Qty: 60 RF: 0 albuterol sulfate 90 mcg/actuation HFA aerosol inhaler 2 inh INHALATION Q6H PRN (Reason: shortness of breath or wheezing) Qty: 8 RF: 0 chlorthalidone 25 mg Tablet 25 mg PO DAILY RF: 0 montelukast 10 mg Tablet 10 mg PO DAILY RF: 0 Symbicort 160-4.5 mcg/actuation HFA aerosol inhaler 2 puff INHALATION BID PRN (Reason: Shortness Of Breath) RF: 0 Pulmicort 1 mg/2 mL suspension for nebulization 1 mg inhalation QID PRN (Reason: Wheezing) RF: 0 Discharge Orders: Discharge Order (Routine); Ordered 08/14/20 Ordered By: Paras Boswell Referrals: Paras Boswell MD [Physician] - 09/05/20 ([facility] will call you Friday to set up an appointment.) Patient Instructions: Oxycodone/Acetaminophen (By mouth), Metronidazole (By mouth), Laxative, Stool Softeners (By mouth), Ondansetron (By mouth), Levofloxacin (By mouth), Colonoscopy (GEN), GI Discharge Instructions, Opioid Safety Activity Restrictions/Additional Instructions: Diet Advance to normal diet as tolerated, increase fluid intake as much as possible. Recommend having 4-5 small portions a day rather than 3 large meals until bowel function is back to normal Activity Avoid strenuous activity for 2 weeks but continue with daily activities including walking as tolerated. Do not lift more than 10 pounds for 2 weeks Return to work/school You can return to work/ school whenever you feel ready as long as you don?t have to lift more than 10 pounds at work. If you have paperwork that needs to be completed for time off from work, please contact my office Driving You can resume driving once you stop using narcotic pain medications, and transition to non-opioid pain medications like Tylenol, Motrin, Aleve, etc. Medications Pain Take opioid pain medications as prescribed and transition to non-opioid pain medications like Tylenol, Motrin, Aleve etc. over the next few days. The goal of the pain medications is to make the pain bearable and not to be pain free since you recently had surgery. Resume all home medications after surgery as per the medication reconciliation list Nausea Nausea is common after surgery, take nausea medications as needed and stay on a liquid bland diet until nausea resolves. Constipation The combination of surgery, anesthesia and pain medications can result in constipation. Take stool softeners as prescribed. If you do not have a bowel movement in 3 days, please take an [id number] laxative like MiraLAX to address the constipation. Shower It is ok to shower but avoid getting the wound wet for 48 hours after surgery. Do not soak in bathtub, swimming pool or hot tub for 2 weeks. Wound care If glue has been used on your incisions after surgery, the glue on the incision will peel slowly over the next two weeks. The stitches used are dissolvable and will not need to be removed. Do not apply antibiotics or other medications on the incision Cover the drain site with gauze once daily until drainage stops Problems with the wound: you can develop some redness around the incision from bruising after surgery. If there is increasing pain, redness, tenderness around the incision with or without drainage, please contact my office to rule out an infection. Sometimes the skin at the incisions can separate, resulting in reopening of the wound. Cover the wound with antibiotic cream and sterile dressings and contact my office. Contact physician Call the office at [phone] during office hours or go the Emergency Room ?Fever to 100.4 or greater ?Shaking chills ?Pain that increases over time ?Redness, warmth, or pus draining from incision sites ?Persistent nausea or inability to take in liquids Discharge Attestations Time Spent in Discharge Care*: less than 30 min Quality Metrics Clinical Quality Measures During this hospital stay, did patient experience: None Coding Level of Care Code Acute [facility] SHARON JHA note Diagnoses H/O laparoscopy Z98.890
[2020-08-14 14:22] VITALS: BP 139/88; PULSE 80; RESP 18; TEMP 36.7; O2SAT 97
== END 2020-08-14 13:00 | disposition home or self-care (01) | DRG 908 ==
LOC: MEDSURG 08-11 07:16
PROVIDERS: Internal Medicine; Admitting Provider Surgery; PCP Nurse Practitioner Family; Visit Provider Surgery
PROC: 0DJ08ZZ Inspection of Upper Intestinal Tract, Via Natural or Artificial Opening Endoscopic (ICD-10-PCS; CPT 43235; principal; 2020-08-10 10:30)
PROC: 0DJD8ZZ Inspection of Lower Intestinal Tract, Via Natural or Artificial Opening Endoscopic (ICD-10-PCS; CPT 45378; 2020-08-10 10:30)
PROC: 0DQN4ZZ Repair Sigmoid Colon, Percutaneous Endoscopic Approach (ICD-10-PCS; CPT 49320; principal; 2020-08-10 11:30)
DX: K91.71 Accidental puncture and laceration of a digestive system organ or structure during a digestive system procedure (principal); K92.1 Melena; Y73.0 Diagnostic and monitoring gastroenterology and urology devices associated with adverse incidents; Y92.234 Operating room of hospital as the place of occurrence of the external cause; I10 Essential (primary) hypertension; M54.5 Low back pain; Z87.891 Personal history of nicotine dependence; Z93.1 Gastrostomy status; E87.6 Hypokalemia
CPT/HCPCS: 36415; 43235; 45378; 51702; 80048; 85025; 94664; 96372; 97161; G0378; J0744; J1650; J1885; J2175; J2270; J2310; J2405; J2704; J2710; J3010; J3490; J3535; J7030; S0030

== ENCOUNTER → 2021-05-08 08:31 | Outpatient (BNVA) | payer MEDICAID, SELFPAY | PROVIDERS: PCP Nurse Practitioner Family; Visit Provider Psychiatry & Neurology Psychiatry | DX: F02.81 Dementia in other diseases classified elsewhere, unspecified severity, with behavioral disturbance (principal); S06.9X9S Unspecified intracranial injury with loss of consciousness of unspecified duration, sequela | CPT/HCPCS: 99204 ==

== ENCOUNTER 2022-11-03 22:12 | Emergency (ER) | payer MEDICAID, SELFPAY ==
[2022-11-03 22:25] VITALS: PULSE 97; RESP 18; TEMP 36.8; O2SAT 95; BMI 35.4
--- NOTE | 2022-11-04 00:05 | XRR_ITS ---
PROCEDURE INFORMATION: Exam: XR Chest Exam date and time: 11/04/2022 12:16 AM Age: 52 years old Clinical indication: Shortness of breath; Patient HX: C/O SOB. History of asthma. TECHNIQUE: Imaging protocol: Radiologic exam of the chest. Views: 1 view. COMPARISON: CR XR chest 1V portable [id number] 05/26/2019 1:16 AM FINDINGS: Lungs: Left lateral lung base patchy densities, new from prior. Right lung clear. Pleural spaces: Unremarkable. No pleural effusion. No pneumothorax. Heart/Mediastinum: Unremarkable. No cardiomegaly. Bones/joints: Unremarkable. XR/XR chest 1V portable [id number] IMPRESSION: Left lateral lung base atelectasis or airspace disease, new from prior.
[2022-11-04] MEDS: ipratropium-albuterol 3 mL Neb INHALATION (00:21)
[2022-11-04 00:22] VITALS: PULSE 64; RESP 18; O2SAT 94
[2022-11-04] MEDS: predniSONE 20 mg Tablet 60 MG PO (00:38)
[2022-11-04 00:39] VITALS: BP 124/69; PULSE 80; RESP 16; O2SAT 96
[2022-11-04 00:46] VITALS: BP 124/69; PULSE 80; RESP 16; TEMP 36.8; O2SAT 96
--- NOTE | 2022-11-04 04:59 | W.ED.ASTHMA ---
HPI - Asthma General: Chief Complaint: Asthma Stated Complaint: SOB Time Seen by Provider: 11/03/22 23:41 History of Present Illness: 52-year-old gentleman who complains of shortness of breath and cough. He is decently difficult to get a history from. He seems a bit lethargic and tired. He is sleeping in the room. He says that he has not had fever or chest pain. He has been using his daily inhaler without much relief. Associated symptoms: Reports non-productive cough; Deny chest pain, fever(s) or productive cough Review of Systems Const: Denies: fever(s) ENMT: Denies: throat pain Card: Denies: chest pain or palpitations Resp: Reports: dyspnea and non-productive cough; Denies: productive cough GI: Denies: abdominal pain or vomiting PFSH ED PFSH: Medical History Hypertension Low back pain Perforation of colon as colonoscopy complication Surgical History Gastrostomy status H/O laparoscopy (08/10/20) Primary repair of colon perforation H/O left knee surgery Hx of brain surgery wasn't able to give me answer when he had the surgery Family History Mother Asthma Denies family history of Anesthesia complication Bleeding disorder Social History Smoking and tobacco status: former smoker Quit status (tobacco): has quit using tobacco Year quit tobacco: 2020 Second hand smoke exposure: Yes Alcohol intake: current Alcohol intake frequency: few times a month Physical Exam Const: COMMON NORMALS: no acute distress GENERAL APPEARANCE: cooperative; not ill appearing and not frail appearing HENMT: COMMON NORMALS: normocephalic, atraumatic and Normal external nose present HEAD & SCALP: normocephalic and atraumatic FACE & SINUS: normal facial exam and face symmetric NOSE: Normal external nose present Eye: COMMON NORMALS: Equal, round and reactive pupils present and EOMs intact bilaterally PUPIL: Yes Equal, round and reactive pupils present Neck/C-Spine: GENERAL: Yes trachea midline Chest: CHEST: Yes Symmetrical chest wall rise Resp: COMMON NORMALS: normal respiratory effort, No retractions, No use of accessory muscles and clear to auscultation bilaterally AUSCULTATION: clear to auscultation bilaterally Cardio: COMMON NORMALS: regular rate and regular rhythm RATE: regular rate RHYTHM: regular rhythm GI: COMMON NORMALS: Normal to inspection, nondistended, normoactive bowel sounds present Extremity: COMMON NORMALS: no pedal edema Neuro: KIMBERLI COMA SCALE: document GCS findings Kimberli coma scale eye opening: Spontaneous Kimberli coma scale verbal response: Orientated Kimberli coma scale motor response: Obey commands [place] coma scale total score: 15 SENSORY EXAM: Yes extremities (intact) Psych: COMMON NORMALS: speech normal SPEECH: Yes normal speech Skin: COMMON NORMALS: no rashes or lesions noted GENERAL SKIN EXAM: no rashes or lesions noted Course Vital Signs: Vital signs: Vital Signs Temperature 98.2 F 11/04/22 00:46 Pulse Rate 80 11/04/22 00:46 Respiratory Rate 16 11/04/22 00:46 Blood Pressure 124/69 11/04/22 00:46 Pulse Oximetry 96 11/04/22 00:46 Oxygen Delivery Me thod Room Air 11/04/22 00:39 MDM - Asthma Medical Decision Making The patient's vitals are normal. He responded to DuoNeb treatment here in the ER. He is given a dose of prednisone here. We will give him a burst of prednisone for 5 days, refill his rescue inhaler, and tell him to use every 4 hours while awake. To return if worsening, particular fever or worsening shortness of breath. Lab Data Radiology Impressions Chest X-Ray 11/04/22 00:05 IMPRESSION: Left lateral lung base atelectasis or airspace disease, new from prior. Discharge Plan Discharge Patient Disposition: Home Clinical Impression: Asthma with acute exacerbation Condition: Stable Prescriptions: New prednisone 20 mg tablet 60 mg PO DAILY 5 Days Qty: 15 0RF Rx Instructions: days 11-21 of therapy Continued albuterol sulfate 90 mcg/actuation HFA aerosol inhaler 2 inh INHALATION Q6H PRN (Reason: shortness of breath or wheezing) Qty: 8 0RF No Action duloxetine [Cymbalta] 30 mg capsule,delayed release(DR/EC) 30 mg PO DAILY Qty: 30 1RF trazodone 50 mg tablet 100 mg PO .HS PRN (Reason: insomnia) Qty: 60 1RF diclofenac sodium 50 mg tablet,delayed release (DR/EC) 50 mg PO TID PRN (Reason: Pain) ibuprofen 200 mg capsule 200 mg PO Q6H PRN (Reason: Pain) tizanidine 4 mg tablet 4 mg PO BID PRN (Reason: muscle spasticity) Qty: 60 0RF chlorthalidone 25 mg Tablet 25 mg PO DAILY montelukast 10 mg Tablet 10 mg PO DAILY Symbicort 160-4.5 mcg/actuation HFA aerosol inhaler 2 puff INHALATION BID PRN (Reason: Shortness Of Breath) Pulmicort 1 mg/2 mL suspension for nebulization 1 mg inhalation QID PRN (Reason: Wheezing) Zofran 4 mg tablet 4 mg PO Q6H PRN (Reason: nausea and vomiting) Qty: 20 0RF Senna with Docusate Sodium 8.6-50 mg tablet 1 tab-cap PO BID Qty: 30 0RF Discharge Orders: Discharge ED (Routine); Ordered 11/04/22 Ordered By: Soto Caldera Referrals: Miguelangel Mckeon NP [Primary Care Provider] - 1-3 days Patient Instructions: Asthma (ED) Activity Restrictions/Additional Instructions: Return for fever, sputum production with her cough, worsening shortness of breath despite treatment, any other concerning symptoms. Use the albuterol rescue inhaler every 4 hours while awake for the next 48 hours, then as needed. Coding Level of Care Code ED Critical Care Physician Assistant for May Chen
== END 2022-11-04 00:49 | disposition home or self-care (01) ==
PROVIDERS: Emergency Provider Emergency Medicine; PCP Nurse Practitioner Family
DX: J45.901 Unspecified asthma with (acute) exacerbation (principal); I10 Essential (primary) hypertension; Z87.891 Personal history of nicotine dependence
CPT/HCPCS: 71045; 94640; 99283; J7512